=== PATIENT | female | born 1955 | race Caucasian/White ===

== ENCOUNTER 2018-02-13 05:00 | Outpatient (CLI) | payer MEDICARE ==
[~2018-02-13 05:00] MED LIST: ACET-812 PO; LEVO100T PO; METOPROLOL PO; SYN0.112T PO; WARF4TAB69 PO
== END 2018-02-13 23:59 | disposition home or self-care (01) ==
LOC: DIABETIC 05:00
PROVIDERS: ATTEND Specialist
DX: E11.65 Type 2 diabetes mellitus with hyperglycemia (principal); I10 Essential (primary) hypertension
CPT/HCPCS: G0108

== ENCOUNTER 2018-03-21 02:41 | Outpatient (CLI) | payer MEDICARE | END 2018-03-21 23:59 | disposition home or self-care (01) | LOC: DIABETIC 02:41 | PROVIDERS: ATTEND Specialist | DX: E11.65 Type 2 diabetes mellitus with hyperglycemia (principal) | CPT/HCPCS: G0108 ==